=== PATIENT | female | born 1980 | race Caucasian/White ===

== ENCOUNTER 2022-12-14 16:02 | Emergency (ER) | payer OTHER ==
[~2022-12-14] VITALS: Ht 160 cm; Wt 54.4 kg
[2022-12-14] MEDS ORDERED: HALOPERIDOL LACTATE 5 MG/1 ML VIAL ONE (16:16)
[2022-12-14] MEDS ORDERED: diphenhydrAMINE 50 MG/1 ML VIAL ONE (16:16)
[2022-12-14] MEDS ORDERED: LORAZEPAM 2 MG/1 ML VIAL ONE ×2 (16:17→20:07)
--- NOTE | 2022-12-14 16:18 | NUR ---
BIB ambulance from home with c/o SI with an unknown intake of ketamine and edibles, patient is yelling,uncooperative and unable to follow cammand at this time. Patient has been informed of plan of care, placed on monitor and in restraints per MD order for safety. Side rails up, frequent monitoring will continue.
[2022-12-14] MEDS: LORAZEPAM 2 MG/1 ML VIAL IM ONE (16:26)
[2022-12-14] MEDS: diphenhydrAMINE 50 MG/1 ML VIAL IM ONE (16:26)
[2022-12-14] MEDS: HALOPERIDOL LACTATE 5 MG/1 ML VIAL IM ONE (16:26)
--- NOTE | 2022-12-14 17:18 | NUR ---
Bedside urine collection in progress, awaiting lb draw.
[2022-12-14 17:34] LABS: HEMATOCRIT 34.3 % (31.2-41.9); MEAN CORPUSCULAR HEMOGLOBIN 29.8 uug (24.7-32.8); MEAN CORPUSCULAR VOLUME 88.9 fL (75.5-95.3); PLATELET COUNT (AUTO) 264 K/uL (179-408)
[2022-12-14 17:54] LABS: CARBON DIOXIDE 23 mmol/L (21-32); CHLORIDE 109 mmol/L (98-107); GLUCOSE 88 mg/dL (74-106); POTASSIUM 3.3 mmol/L (3.5-5.1); UREA NITROGEN, BLOOD 24 mg/dL (7-18)
[2022-12-14 18:02] LABS: ALANINE AMINOTRANSFERASE 42 U/L (14-59); ALKALINE PHOSPHATASE 78 U/L (50-136); ASPARTATE AMINOTRANSFERASE 15 U/L (15-37); BILIRUBIN,DIRECT 0.1 mg/dL (0.0-0.2); BILIRUBIN,TOTAL 0.5 mg/dL (0.2-1.0); TOTAL PROTEIN, SERUM 7.2 g/dL (6.4-8.2)
[2022-12-14 18:03] LABS: ACETAMINOPHEN < 2.0 ug/mL (10-30)
--- NOTE | 2022-12-14 18:13 | NUR ---
Patient resting, right leg released at this time, will continue to monitor.
[2022-12-14 18:20] LABS: ETHANOL < 3 MG/DL (0-0)
--- NOTE | 2022-12-14 18:34 | NUR ---
Patient continues to rest, left leg released at this time, will continue to monitor.
[2022-12-14 19:08] LABS: *BILIRUBIN,URIN NEGATIVE (NEGATIVE); *CLARITY,URINE CLEAR (CLEAR); *COLOR,URINE YELLOW (YELLOW); *KETONES,URINE 4+ (NEGATIVE); *UROBILINOGEN,URINE 0.2 E.U./dl (NORMAL); LEUKOCYTE ESTERASE ,URINE NEGATIVE (NEGATIVE); NITRITE, URINE NEGATIVE (NEGATIVE); UGLUCOSE NEGATIVE (NEGATIVE)
[2022-12-14 19:11] LABS: *BLOOD, URINE TRACE (NEGATIVE)
--- NOTE | 2022-12-14 19:25 | NUR ---
Report given to accepting RN. Addendum: 12/14/22 at 1925 by RHINA Pt remains stable.
[2022-12-14 19:36] LABS: *AMPHETAMINE, URINE NEGATIVE (NEGATIVE); *CANNABINOID, URINE POSITIVE (NEGATIVE); *COCCAINE, URINE POSITIVE (NEGATIVE); *PHENCYCLIDINE SCREEN,URINE NEGATIVE (NEGATIVE)
[2022-12-14] MEDS: IV NORMAL SALINE 1000 ML BAG IV ONE (19:40)
--- NOTE | 2022-12-14 19:45 | NUR ---
Received patient in room 3 for ketamine overdose, asleep and not able to answer questions. Vitals stable, afebrile, restraints removed,monitoring ongoing.
--- NOTE | 2022-12-14 19:56 | NUR ---
No 1:1 sitter available per nursing supervisor type disk quality control.
[2022-12-14] MEDS: LORAZEPAM 2 MG/1 ML VIAL IV ONE (20:37)
--- NOTE | 2022-12-15 00:05 | NUR ---
Assisted patient to bathroom, unsteady gait, urinated and assisted back to bed. Will continue to monitor patient and follow plan of care.
[2022-12-15 01:17] LABS: BACTERIA,URINE FEW /HPF (NONE SEEN); RBC,URINE 0-3 /HPF (0-3); SQUAMOUS EPITHELIAL CELL,UR FEW /HPF (NONE SEEN); WBC,URINE 0-3 /HPF (0-3)
--- NOTE | 2022-12-15 07:10 | NUR ---
Received report from receiving RN. Pt in stable condition. Safety measures in place. Will continue to monitor.
--- NOTE | 2022-12-15 08:34 | NUR ---
SW at bedside talking with patient and family member over the re: plan of care. No s/s of any distress noted at this time, will continue to monitor.
--- NOTE | 2022-12-15 10:18 | NUR ---
MAGALY consult requested for a 42 year old female for substance abuse resources. Patient is alert and oriented X3 and presents with depressed mood and congruent affect. Patient states her primary contact is her brother, Tiago Stern ([phone]) and he lives in [place]. MAGALY and patient spoke to Tiago on the phone at the patient's bedside. Patient states she lives with her step mother in a house and SW was unable to ascertain the address. Patient states she is currently unemployed and not driving. Patient states she has a history of cocaine and ketamine abuse and MAGALY provided the patient with resources for [place] [address] ([phone]), [address] [address] ([phone]), and [address] [address] ([phone]). MAGALY also faxed the patient's clinical information to [facility] (fax: [phone]) and spoke with Ines from intake. Patient started an assessment with Ines ([phone] ext: [phone]) from [facility] over the phone and will continue the assessment in the taxi to [place] [address] ([phone]) where she is being discharged. Patient appears motivated for treatment. Patient states she has a history of ADHD and autism and is going to meet with her therapist when she is discharged. Patient denies suicidal or homicidal ideation. Patient's discharge plan is to take a taxi to [place] [address] ([phone]).
--- NOTE | 2022-12-15 10:22 | NUR ---
Contacted [employer]: Dispatcher 8 stated the taxi will come in "around 15 min." Safety measures in place. Will continue to monitor.
--- NOTE | 2022-12-15 10:36 | NUR ---
Patient discharged to [facility] via Taxi in stable condition. Gave tilt tray driver voucher. tilt tray driver declined facesheet. Written and verbal after care instructions given. Patient verbalizes understanding of instructions. Stressed follow up or return to ER for worsening s/s.
[2022-12-15 10:38] VITALS: BP 108/64
== END 2022-12-15 10:39 ==
LOC: ER 16:02
DX: F29 Unspecified psychosis not due to a substance or known physiological condition (principal); F19.90 Other psychoactive substance use, unspecified, uncomplicated; R10.2 Pelvic and perineal pain; Z20.822 Contact with and (suspected) exposure to COVID-19
CPT/HCPCS: 80076; 80048; 81001; 85025; 87426; 84702; 36415; 99285; 96361; 96374; 96372 ×3; 80299; 80320; 80307; J1200; J1630; J2060 ×2; J7040; A4663; C1758; G0480